=== PATIENT | male | born 1955 | race Caucasian/White ===

== ENCOUNTER 2025-02-14 14:30 | Outpatient (AMB) | payer MEDICARE, SELFPAY ==
[2025-02-14 14:50] VITALS: BP 130/72; PULSE 90; BMI 28.7
--- NOTE | 2025-02-14 14:50 | MHC.OFFVIS ---
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 This was a new finding, as his EKG last year was normal (per PCP note). He is asymptomatic, denying any symptoms of chest pain, racing heart, or pounding sensations. The patient has a family history of atrial fibrillation in his cousins. He has a history of hypertension which is monitored but not medically treated, with a recent self-reported blood pressure of 130/72 mmHg, though a prior reading at his doctor's office was 158/82mmHg. He has never been tested for sleep apnea. [facility] Surgical History (Updated 02/14/25 @ 14:59 by Oanh Ordonez) History of finger surgery Family History (Updated 02/14/25 @ 15:01 by Oanh Ordonez) Mother Chronic a-fib High blood pressure Father Heart attack Social History (Updated 02/14/25 @ 15:01 by Oanh Ordonez) Alcohol intake: current Alcohol intake frequency: a few times a week Alcohol type: wine Patient Tobacco Use Status: Never used Tobacco Review of Systems Const Denies weakness ENT Denies dizziness Card Denies chest pain, Denies chest pain with activity, Denies syncope, Denies rapid heart rate, Denies pedal edema, Denies edema, Denies leg edema, Denies lightheadedness, Denies palpitations, Reports dyspnea, Reports dyspnea on exertion and Denies orthopnea Resp Denies cough, Reports dyspnea and Reports dyspnea on exertion GI Denies hematochezia and Denies change in stool character Musc Denies abnormal gait, Denies muscle cramps, Denies muscle weakness, Denies numbness, Denies radiating pain into limb and Denies tingling Neuro Denies abnormal gait, Denies dizziness, Denies syncope, Denies numbness, Denies tingling and Denies weakness Endo Denies palpitations Physical Exam Vital Signs: Last Vital Signs Pulse 90 02/14/25 14:50 BP 130/72 02/14/25 14:50 BMI result Body Mass Index 28.7 Const General: comfortable and no acute distress Orientation/consciousness: patient oriented x3 HEENT Other: Unremarkable Head: Yes normal to inspection Neck Neck: Yes normal visual inspection Chest Chest palpation & inspection: normal inspection of the chest Resp Auscultation: clear to auscultation bilaterally Cardio Palpation: normal PMI Heart sounds: S1 normal heart sound present, S2 normal heart sound present, no gallops, no murmurs and no rubs GI Palpation (GI): Soft to palpation Back/Spine/Pelvis Other: unremarkable Skin General skin exam: no rashes or lesions noted Neuro General: patient oriented x3 Extrem General: Yes normal to inspection Psych Mental Status: mental status grossly normal Office Procedures EKG Details: EKG with atrial fibrillation at a rate of 90/Min. 29036-[id number], Complete Assessment & Plan Assessment & Plan (1) Atrial fibrillation by electrocardiogram: Code(s): I48.91 - Unspecified atrial fibrillation Category: Medical Plan EKGs from today as well as recent EKG from PCP office showed atrial fibrillation. Unknown duration. Could be a few months as per PCP note, the EKG from previous ER was normal. As he is spontaneously rate controlled, suspect he has got some conduction system disease at baseline. No need for beta-blockers or calcium channel blockers in that regard. We discussed about anticoagulation and considering his age and probable hypertension, he needs to be started on Eliquis. He has done some recent labs for PCP and we will get those for review before starting the medication. After he starts Eliquis, may stop aspirin. He needs further workup with an echocardiogram and Holter monitor. After appropriate anticoagulation, recommend cardioversion. We discussed about these in detail and he understands and agrees. Follow up in a few weeks' time. Discussion Notes: I had a detailed discussion with the patient regarding his new diagnosis of atrial fibrillation. I explained that this is an irregular heart rhythm originating from the top chambers of the heart, which can lead to an ineffective pumping action. I emphasized the most significant risk is stroke, which can occur if blood pools and forms a clot in the heart. I recommended a treatment plan that includes starting a blood thinner, specifically Eliquis, to prevent stroke, and noted that aspirin is not sufficient. We discussed the primary side effects of a blood thinner, such as an increased risk of bruising or bleeding from cuts, but I explained that the risk of a major bleed is very rare for most people. I informed him that we need to review his recent blood work before he starts the medication to ensure it is safe. We also discussed the need for further diagnostic tests, including an echocardiogram and a 3-day Holter monitor, to get more information about his heart. I mentioned that an electrical cardioversion might be an option in the future to reset his heart's rhythm. I advised him to avoid strenuous exercise for now and to follow up in 6-8 weeks after the tests are completed. Patient was informed and verbally consented to the use of an ambient scribe for clinic note documentation during this visit. Orders: Orders CA echo transthoracic complete Today I48.91 - Unspecified atrial fibrillation ECG 3 day holter monitor Today I48.91 - Unspecified atrial fibrillation Coding Level of Care Code New Pt Level 4 (14801) Add On Problem Visit Only Diagnoses Atrial fibrillation by electrocardiogram I48.91 CPT Codes EKG - CPT: 73908-[id number], Complete ([id number])
--- OUTSIDE RECORDS SUMMARY | 2025-02-14 18:10 | XMS_ITS | Data Portability ---
Author Organization [place] - [place] Jose Juan wang[place], [id number] [facility] Address [address] [place] [address] Care Team Providers Care Diver'S Tender Name Role Phone GARCIA WRIGHT Primary Care Provider [phone] Assessment Encounter Date Assessment Date Assessment LastModified by Organization Details LastModified Time 12/29/2022 12/29/2022 Reminders 1. Have you reviewed all current prescriptions and noted which they have discontinued with the patient? Reviewed with patient 2. Have you asked the patient if they are experiencing any new or recurring issues with bladder control? Reviewed with patient 3. Have you asked the patient about their current physical fitness routine and goals? Reviewed with patient Not available 12/29/2022 14:23:21 01/18/2024 01/18/2024 Reminders 1. Have you reviewed all current prescriptions and noted which they have discontinued with the patient? Reviewed with patient 2. Have you asked the patient if they are experiencing any new or recurring issues with bladder control? Reviewed with patient 3. Have you asked the patient about their current physical fitness routine and goals? Reviewed with patient Not available 01/18/2024 14:47:11 01/20/2025 01/20/2025 Reminders 1. Have you reviewed all current prescriptions and noted which they have discontinued with the patient? Reviewed with patient 2. Have you asked the patient if they are experiencing any new or recurring issues with bladder control? Reviewed with patient 3. Have you asked the patient about their current physical fitness routine and goals? Reviewed with patient Not available 01/20/2025 11:34:15 Plan of Treatment Reminders Order Date Submit Date Provider Last Modified By Organization Details Last Modified Time Details Appointments AWV (Medicare ) 2025 11:00A M Garcia Wright MD Not available Not available Not available Lab TSH, ultra-sen sitive, serum 2024 025 GENE [facility], [address] [facility], [place], [address], 01/25/2025 08:09:20 CBC w/ auto diff 2024 025 GENE [facility], [address] [facility], [place], [address], 01/25/2025 08:09:19 CMP, serum or plasma 2024 025 GENE [facility], [address] [facility], [place], [address], 01/25/2025 08:09:18 lipid panel, serum 2024 025 GENE [facility], [address] [facility], [place], [address], 01/25/2025 08:09:19 PSA, serum or plasma 2024 025 GENE [facility], [address] [facility], [place], [address], 01/25/2025 08:09:20 CBC w/ auto diff 2022 023 ATHE[facility] (Centralized Electronic Ordering - All Locations), Patient Can Go To The Location Of Their Choice, 12/29/2022 14:15:40 CMP, serum or plasma 2022 023 [facility] (Centralized Electronic Ordering - All Locations), Patient Can Go To The Location Of Their Choice, 12/29/2022 14:15:40 lipid panel, serum 2022 023 [facility] (Centralized Electronic Ordering - All Locations), Patient Can Go To The Location Of Their Choice, 12/29/2022 14:15:40 PSA, serum or plasma 2022 023 [facility] (Centralized Electronic Ordering - All Locations), Patient Can Go To The Location Of Their Choice, [id number] 12/29/2022 14:15:40 Referral cardiolog ist referral - New onset Afib, request evaluatio n and managemen t 2024 025 [email or web address] Aquiles Nice MD, [address], [place], [address], 01/31/2025 10:07:54 Procedures None recorded. Surgeries None recorded. Imaging electroca rdiogram 2024 [address]25 [email or web address] [address] [place], [address], [place], [address], 01/20/2025 12:29:13 CT, coronary calcium score - HYperchol esterolem ia 2023 024 ATHENAFAX [facility], [address], [place], [address], 01/18/2024 15:01:27 electroca rdiogram [address]23 [email or web address] [address] [place], [address], [address], [place], [address], 12/29/2022 14:25:05 Medication Orders tadalafil 5 mg tablet 2023 024 GENE Not available 01/18/2024 14:27:16 Zithromax Z-Antonio 250 mg tablet 2022 023 Not available 12/29/2022 13:56:58 Patient TargetsNo targets recorded. Patient Instructions Encounter Date Encounter Id Patient Instructions Last Modified By Organization Details Last Modified Time 12/29/2022 [id number] well visit, over 65: care instructions Not available 12/29/2022 14:13:57 preventing falls : care instructions Not available 12/29/2022 14:13:57 advance directiv es: care instructions Not available 12/29/2022 14:13:57 To promote good health please follow these recommendations: Diet, Physical Activity and Healthy Weight: -Eat a diet low in trans and saturated fats and high in fiber, fruits and vegetables -Take 0801-1609 mg of calcium through diet and supplements -Engage in regular physical activity and weight bearing exercise -Aim to achieve and maintain ideal body mass index Tobacco and Alcohol Use: -Don't smoke or use other tobacco products -Avoid excessive alcohol intake Medications: -If you use any medications (prescriptions, crvo-orj-vzopegc, supplements, herbal), always do so as directed by your health care provider -Avoid misuse of any substances in a manner that is not in accordance with appropriate use Safety: -Use seat belts whenever in the car -Use sunscreen regularly to reduce the risk of skin cancer -Test smoke detectors and CO detectors every 6 months -Remove loose rugs and use hand rails on steps and in bath Cognition: -Being intellectually engaged may benefit the brain. Lots of activities can keep your mind active. For example, read books and magazines. Play games. Take or teach a class. Learn a new skill or hobby. Work or volunteer. -People who engage in meaningful activities, like volunteering or hobbies, say they feel happier and healthier. Vaccinations: -Get your yearly influenza vaccine and follow all immunization recommendations outlined in your personal wellness plan. [email or web address] Not available 12/29/2022 13:29:58 01/18/2024 [id number] well visit, over 65: care instructions Not available 01/18/2024 14:27:06 preventing falls : care instructions Not available 01/18/2024 14:27:06 advance directiv es: care instructions Not available 01/18/2024 14:27:06 To promote good health please follow these recommendations: Diet, Physical Activity and Healthy Weight: -Eat a diet low in trans and saturated fats and high in fiber, fruits and vegetables -Take 3726-5421 mg of calcium through diet and supplements -Engage in regular physical activity and weight bearing exercise -Aim to achieve and maintain ideal body mass index Tobacco and Alcohol Use: -Don't smoke or use other tobacco products -Avoid excessive alcohol intake Medications: -If you use any medications (prescriptions, nxjd-hps-voyovfh, supplements, herbal), always do so as directed by your health care provider -Avoid misuse of any substances in a manner that is not in accordance with appropriate use Safety: -Use seat belts whenever in the car -Use sunscreen regularly to reduce the risk of skin cancer -Test smoke detectors and CO detectors every 6 months -Remove loose rugs and use hand rails on steps and in bath Cognition: -Being intellectually engaged may benefit the brain. Lots of activities can keep your mind active. For example, read books and magazines. Play games. Take or teach a class. Learn a new skill or hobby. Work or volunteer. -People who engage in meaningful activities, like volunteering or hobbies, say they feel happier and healthier. Vaccinations: -Get your yearly influenza vaccine and follow all immunization recommendations outlined in your personal wellness plan. Not available 01/18/2024 13:39:04 01/20/2025 [id number] well visit, over 65: care instructions Not available 01/20/2025 12:10:44 preventing falls : care instructions Not available 01/20/2025 12:10:44 advance directiv es: care instructions Not available 01/20/2025 12:10:44 To promote good health please follow these recommendations: Diet, Physical Activity and Healthy Weight: -Eat a diet low in trans and saturated fats and high in fiber, fruits and vegetables -Take 0010-3681 mg of calcium through diet and supplements -Engage in regular physical activity and weight bearing exercise -Aim to achieve and maintain ideal body mass index Tobacco and Alcohol Use: -Don't smoke or use other tobacco products -Avoid excessive alcohol intake Medications: -If you use any medications (prescriptions, tgdd-rge-uiireqc, supplements, herbal), always do so as directed by your health care provider -Avoid misuse of any substances in a manner that is not in accordance with appropriate use Safety: -Use seat belts whenever in the car -Use sunscreen regularly to reduce the risk of skin cancer -Test smoke detectors and CO detectors every 6 months -Remove loose rugs and use hand rails on steps and in bath Cognition: -Being intellectually engaged may benefit the brain. Lots of activities can keep your mind active. For example, read books and magazines. Play games. Take or teach a class. Learn a new skill or hobby. Work or volunteer. -People who engage in meaningful activities, like volunteering or hobbies, say they feel happier and healthier. Vaccinations: -Get your yearly influenza vaccine and follow all immunization recommendations outlined in your personal wellness plan. Not available 01/20/2025 11:04:01 Reason for Referral Volunteer Specialist Referral for At rial fibrillation New onset Afib, request evaluation and management Referring Physician: Garcia Wright, Internal Medicine, Encounter Date: 01/20/2025 Results Created Date Observation Date Name Description Value Unit Range Abnormal Flag Note LastModifiedBy Organization Detail LastModifiedTime 01/25/2001/25/2025 CMP14 +EGFR glucose 101 mg/dL 70-99 above high normal Not Available [facility] ([facility]) [address] [place], [address], 01/25/2025 08:09:18 01/25/20 25 01/25/2025 CMP14 +EGFR BUN 19 mg/dL 8-27 normal Not Available [facility] ([facility]) [address] [place], [address], 01/25/2025 08:09:18 01/25/20 25 01/25/2025 CMP14 +EGFR creatinine 1.18 mg/dL 0.76-1 .27 normal Not Available [facility] ([facility]) [address] [place], [address], 01/25/2025 08:09:18 01/25/20 25 01/25/2025 CMP14 +EGFR eGFR 67 mL/mi n/1.7 3 >59 normal Not Available [facility] ([facility]) [address] [place], [address], 01/25/2025 08:09:18 01/25/20 25 01/25/2025 CMP14 +EGFR BUN/creatini ne ratio 16 10-24 normal Not Available [facility] ([facility]) [address] [place], [address], 01/25/2025 08:09:18 01/25/20 25 01/25/2025 CMP14 +EGFR sodium 138 mmol/ L 134-14 4 normal Not Available [facility] ([facility]) [address] [place], [address], 01/25/2025 08:09:18 01/25/20 25 01/25/2025 CMP14 +EGFR potassium 5.0 mmol/ L 3.5-5. 2 normal Not Available [facility] ([facility]) [address] [place], [address], 01/25/2025 08:09:18 01/25/20 25 01/25/2025 CMP14 +EGFR chloride 100 mmol/ L 96-106 normal Not Available [facility] ([facility]) [address] [place], [address], 01/25/2025 08:09:18 01/25/20 25 01/25/2025 CMP14 +EGFR carbon dioxide, total 27 mmol/ L 20-29 normal Not Available [facility] ([facility]) [address] [place], [address], 01/25/2025 08:09:18 01/25/20 25 01/25/2025 CMP14 +EGFR calcium 10.0 mg/dL 8.6-10 .2 normal Not Available [facility] ([facility]) [address] [place], [address], 01/25/2025 08:09:18 01/25/20 25 01/25/2025 CMP14 +EGFR protein, total 7.2 g/dL 6.0-8. 5 normal Not Available [facility] ([facility]) [address] [place], [address], 01/25/2025 08:09:18 01/25/20 25 01/25/2025 CMP14 +EGFR albumin 4.6 g/dL 3.9-4. 9 normal Not Available [facility] ([facility]) [address] [place], [address], 01/25/2025 08:09:18 01/25/20 25 01/25/2025 CMP14 +EGFR globulin, total 2.6 g/dL 1.5-4. 5 Not Available [facility] ([facility]) [address] [place], [address], 01/25/2025 08:09:18 01/25/20 25 01/25/2025 CMP14 +EGFR bilirubin, total 0.7 mg/dL 0.0-1. 2 normal Not Available [facility] ([facility]) [address] [place], [address], 01/25/2025 08:09:18 01/25/20 25 01/25/2025 CMP14 +EGFR alkaline phosphatase 57 IU/L 47-123 normal Not Available [facility] ([facility]) [address] [place], [address], 01/25/2025 08:09:18 01/25/20 25 01/25/2025 CMP14 +EGFR AST (SGOT) 27 IU/L 0-40 normal Not Available [facility] ([facility]) [address] [place], [address], 01/25/2025 08:09:18 01/25/20 25 01/25/2025 CMP14 +EGFR ALT (SGPT) 27 IU/L 0-44 normal Not Available [facility] ([facility]) [address] [place], [address], 01/25/2025 08:09:18 01/25/20 25 01/25/2025 CBC WITH DIFFE RENTI AL/PL ATELE T WBC 7.1 x10e3 /uL 3.4-10 .8 normal Not Available [facility] ([facility]) [address] [place], [address], 01/25/2025 08:09:19 01/25/20 25 01/25/2025 CBC WITH DIFFE RENTI AL/PL ATELE T RBC 5.44 x10e6 /uL 4.14-5 .80 normal Not Available [facility] ([facility]) [address] [place], [address], 01/25/2025 08:09:19 01/25/2001/25/2025 CBC WITH DIFFE RENTI AL/PL ATELE T hemoglobin 16.3 g/dL 13.0-1 7.7 normal Not Available [facility] ([facility]) [address] [place], [address], 01/25/2025 08:09:19 01/25/2001/25/2025 CBC WITH DIFFE RENTI AL/PL ATELE T hematocrit 48.7 % 37.5-5 1.0 normal Not Available [facility] ([facility]) [address] [place], [address], 01/25/2025 08:09:19 01/25/2001/25/2025 CBC WITH DIFFE RENTI AL/PL ATELE T MCV 90 fL 79-97 normal Not Available [facility] ([facility]) [address] [place], [address], 01/25/2025 08:09:19 01/25/2001/25/2025 CBC WITH DIFFE RENTI AL/PL ATELE T MCH 30.0 pg 26.6-3 3.0 normal Not Available [facility] ([facility]) [address] [place], [address], 01/25/2025 08:09:19 01/25/20 25 01/25/2025 CBC WITH DIFFE RENTI AL/PL ATELE T MCHC 33.5 g/dL 31.5-3 5.7 normal Not Available [facility] ([facility]) [address] [place], [address], 01/25/2025 08:09:19 01/25/20 25 01/25/2025 CBC WITH DIFFE RENTI AL/PL ATELE T RDW 14.3 % 11.6-1 5.4 Not Available [facility] ([facility]) [address] [facility], [place], [address], 01/25/2025 08:09:19 01/25/20 25 01/25/2025 CBC WITH DIFFE RENTI AL/PL ATELE T platelets 254 x10e3 /uL 150-45 0 normal Not Available [facility] ([facility]) [address] [facility], [place], [address], 01/25/2025 08:09:19 01/25/20 25 01/25/2025 CBC WITH DIFFE RENTI AL/PL ATELE T neutrophils 57 % not estab. normal Not Available [facility] ([facility]) [address] [facility], [place], [address], 01/25/2025 08:09:19 01/25/20 25 01/25/2025 CBC WITH DIFFE RENTI AL/PL ATELE T lymphs 30 % not estab. normal Not Available [facility] ([facility]) [address] [facility], [place], [address], 01/25/2025 08:09:19 01/25/20 25 01/25/2025 CBC WITH DIFFE RENTI AL/PL ATELE T monocytes 9 % not estab. normal Not Available [facility] ([facility]) [address] [facility], [place], [address], 01/25/2025 08:09:19 01/25/20 25 01/25/2025 CBC WITH DIFFE RENTI AL/PL ATELE T eos 3 % not estab. normal Not Available [facility] ([facility]) [address] [facility], [place], [address], 01/25/2025 08:09:19 01/25/2001/25/2025 CBC WITH DIFFE RENTI AL/PL ATELE T basos 1 % not estab. normal Not Available [facility] ([facility]) [address] [place], [address], 01/25/2025 08:09:19 01/25/20 25 01/25/2025 CBC WITH DIFFE RENTI AL/PL ATELE T immature cells ARCHITECTURE INTERN Not Available [facility] ([facility]) [address] [place], [address], 01/25/2025 08:09:19 01/25/2001/25/2025 CBC WITH DIFFE RENTI AL/PL ATELE T neutrophils (absolute) 4.0 x10e3 /uL 1.4-7. 0 normal Not Available [facility] ([facility]) [address] [place], [address], 01/25/2025 08:09:19 01/25/2001/25/2025 CBC WITH DIFFE RENTI AL/PL ATELE T lymphs (absolute) 2.1 x10e3 /uL 0.7-3. 1 normal Not Available [facility] ([facility]) [address] [place], [address], 01/25/2025 08:09:19 01/25/2001/25/2025 CBC WITH DIFFE RENTI AL/PL ATELE T monocytes(ab solute) 0.6 x10e3 /uL 0.1-0. 9 normal Not Available [facility] ([facility]) [address] [place], [address], 01/25/2025 08:09:19 01/25/20 25 01/25/2025 CBC WITH DIFFE RENTI AL/PL ATELE T eos (absolute) 0.2 x10e3 /uL 0.0-0. 4 normal Not Available [facility] ([facility]) [address] [place], [address], 01/25/2025 08:09:19 01/25/20 25 01/25/2025 CBC WITH DIFFE RENTI AL/PL ATELE T baso (absolute) 0.1 x10e3 /uL 0.0-0. 2 normal Not Available [facility] ([facility]) [address] [facility], [place], [address], 01/25/2025 08:09:19 01/25/20 25 01/25/2025 CBC WITH DIFFE RENTI AL/PL ATELE T immature granulocytes 0 % not estab. Not Available [facility] ([facility]) [address] [facility], [place], [address], 01/25/2025 08:09:19 01/25/20 25 01/25/2025 CBC WITH DIFFE RENTI AL/PL ATELE T immature grans (abs) 0.0 x10e3 /uL 0.0-0. 1 Not Available [facility] ([facility]) [address] [facility], [place], [address], 01/25/2025 08:09:19 01/25/20 25 01/25/2025 CBC WITH DIFFE RENTI AL/PL ATELE T NRBC ARCHITECTURE INTERN Not Available [facility] ([facility]) [address] [facility], [place], [address], 01/25/2025 08:09:19 01/25/20 25 01/25/2025 CBC WITH DIFFE RENTI AL/PL ATELE T hematology comments: ARCHITECTURE INTERN Not Available [facility] ([facility]) [address] [facility], [place], [address], 01/25/2025 08:09:19 01/25/20 25 01/25/2025 LIPID PANEL cholesterol, total 197 mg/dL 100-19 9 normal Not Available [facility] ([facility]) [address] [facility], [place], [address], 01/25/2025 08:09:19 01/25/20 25 01/25/2025 LIPID PANEL triglyceride s 82 mg/dL 0-149 normal Not Available [facility] ([facility]) [address] [place], [address], 01/25/2025 08:09:19 01/25/20 25 01/25/2025 LIPID PANEL HDL cholesterol 48 mg/dL >39 normal Not Available [facility] ([facility]) [address] [place], [address], 01/25/2025 08:09:19 01/25/20 25 01/25/2025 LIPID PANEL VLDL cholesterol lexa 15 mg/dL 5-40 Not Available [facility] ([facility]) [address] [place], [address], 01/25/2025 08:09:19 01/25/20 25 01/25/2025 LIPID PANEL LDL chol calc ([facility]) 134 mg/dL 0-99 above high normal Not Available [facility] ([facility]) [address] [place], [address], 01/25/2025 08:09:19 01/25/2001/25/2025 LIPID PANEL LDL calc comment: ARCHITECTURE INTERN Not Available [facility] ([facility]) [address] [place], [address], 01/25/2025 08:09:19 01/25/2001/24/2025 PSA TOTAL (REFL EX TO FREE) reflex criteria COMMEN T The perce nt free PSA is perfo rmed on a refle x basis only when the total PSA is betwe en 4.0 and 10.0 ng/mL . Not Available [facility] ([facility]) [address] [place], [address], 01/25/2025 08:09:20 01/25/20 25 01/25/2025 PSA TOTAL (REFL EX TO FREE) prostate specific Ag 3.9 NG/mL 0.0-4. 0 normal Bharat ECLIA metho dolog y. Accor ding to the Ameri can [employer]rolo g[employer] iatio n, Serum PSA shoul d decre ase and remai n at undet ectab le level s after radic al prost atect taran. The AUA defin es bioch emica l recur rence as an initi al PSA value 0.2 ng/mL or great er follo wed by a subse quent confi rmato ry PSA value 0.2 ng/mL or great er. Value s obtai katia with diffe rent assay metho ds or kits canno t be used inter chávez eably . Resul ts canno t be inter prete d as absol [place] evide nce of the prese nce or absen ce of mario leal se. Not Available [facility] ([facility]) [address] [facility], [place], [address], 01/25/2025 08:09:20 01/25/2001/25/2025 TSH TSH 3.460 uIU/m L 0.450- 4.500 normal Not Available [facility] ([facility]) [address] [facility], [place], [address], 01/25/2025 08:09:20 12/30/19 [facility] No observ ation record ed. GENE [email or web address] [address] [place] [address] [facility], [place], [address], 12/29/2022 14:13:52 12/31/19 23 12/29/2022 [facility] No observ ation record ed. GENE [email or web address] [address], [place], [address], 01/20/2025 11:56:29 01/21/20 [facility] No observ ation record ed. GENE [email or web address] [address], [place], [address], 01/20/2025 12:19:09 01/24/2001/20/2025 elect laci boland am No observ ation record ed. THOMPSON [email or web address] [address] [place], [address], 01/26/2025 15:12:07 Result Notes None recorded. 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 75676024583 07 Active 2022 Vasculoge yamilet erectile dysfuncti on Not Available [facility] 3 12:02:51 Hyperchol esterolem ia 63777228 Active 2022 Hyperchol esterolem ia Not Available [facility] 3 12:02:52 Insomnia 766804388 Active 2022 Garcia Wright MD [address] [place] [address], [address] [place] [address] , [facility] 3 14:58:49 Seasonal allergic rhinitis 084106626 Active 2024 Garcia Wright MD [address] [place] [address], [address] [place] [address] , [facility] 5 11:23:10 Atrial fibrillat ion 55558156 Active 2024 Garcia Wright MD [address] [place] [address], [address] [place] [address] , [facility] 5 12:04:32 Essential hypertens ion 15803417 Active 2024 Garcia Wright MD [address] [place] [address], [address] [place] [address] , [facility] 5 12:28:05 Problem Notes None recorded. Procedures Surgical History Date Name Laterality Status Provider Name and Address Organization Details Recorded Time 01/21/20 AWV - male prevention plan completed Garcia Wright MD [address] [place] [address], [address] [place] [address], [place] [facility] 01/20/2025 12:18:30 01/21/20 25 AWV - safety evaluation completed Monique Wesley [place] - [place] [facility] 01/20/2025 11:04:01 01/18/20 24 AWV - male prevention plan completed Garcia Wright MD [address] [place] [address], [address], [place], [address], [place] [facility] 01/18/2024 14:46:49 01/18/20 24 Advance Care Planning Consultation completed Garcia Wright MD [address] [place] [address], [address], [place], [address], [place] [facility] [place] 01/18/2024 14:47:05 01/18/20 24 AWV - safety evaluation completed Danielle Gabriel [place] - [facility] 01/18/2024 13:39:04 12/30/19 23 Advance Care Planning Consultation completed Kyara Aviles [place] - [facility] 12/29/2022 13:29:59 12/30/19 23 AWV - safety evaluation completed [facility]iles [facility] [place] 12/29/2022 13:29:59 12/30/19 23 AWV - male prevention plan completed Garcia Wright MD [address] [place] [address], [address] Floor, [place], [address], [place] - [facility] 12/29/2022 14:23:09 03/04/19 23 colonoscopy completed Garcia Wright MD [address] [place] [address], [address] [place] [address], [place], [address], [place] - [place] [facility] 12/29/2022 14:00:29 Imaging Results None recorded. Procedure Notes None recorded. Medical Equipment None Reported. Allergies No known drug allergies Medications Name Sig Start Date Stop Date Status Note LastModified by Organization Details LastModified Time sildenafil 50 mg tablet TAKE 1 TABLET BY MOUTH NEEDED FOR ERECTILE DYSFUNCTI ON 01/20 completed Not Available Not Available Not Available azithromyci n 250 mg tablet TAKE 2 TABLETS BY MOUTH ON DAY 1 THEN TAKE 1 TABLET DAILY ON DAYS 2-5. 12/29 completed Not Available Not Available Not Available benzonatate 200 mg capsule TAKE 1 CAPSULE BY MOUTH 2 TO 3 TIMES PER DAY FOR 4 DAYS NEEDED FOR COUGH 05/29 completed Not Available Not Available Not Available prednisone 20 mg tablet TAKE 2 TABLETS BY MOUTH DAILY FOR 5 DAYS active Not Available Not Available No t Available benzonatate 100 mg capsule TAKE 1 CAPSULE BY MOUTH TWICE A DAY FOR COUGH FOR 5 DAYS active Not Available Not Available No t Available levofloxaci n 750 mg tablet TAKE 1 TABLET BY MOUTH DAILY FOR 7 DAYS 05/29 completed Not Available Not Available Not Available albuterol sulfate HFA 90 mcg/actuati on aerosol inhaler INHALE 2 PUFFS 4 TIMES A DAY FOR SHORTNESS OF BREATH OR WHEEZING FOR 7 DAYS active Not Available Not Available No t Available fluticasone propionate 50 mcg/actuati on nasal spray,suspe nsion SHAKE LIQUID AND USE 2 SPRAYS IN EACH NOSTRIL DAILY FOR 10 DAYS active Not Available Not Available No t Available doxycycline hyclate 100 mg tablet TAKE 1 TABLET BY MOUTH TWICE A DAY FOR 10 DAYS 01/17 completed Not Available Not Available Not Available amoxicillin 875 mg-potassiu m clavulanate 125 mg tablet TAKE 1 TABLET BY MOUTH TWICE DAILY FOR 10 DAYS 01/20 completed Not Available Not Available Not Available tadalafil 5 mg tablet TAKE 1 TABLET BY MOUTH EVERY DAY NEEDED active Not Available Not Available No t Available Vitals Date Recorded Body height Body mass index (BMI) Body weight Oxygen saturation Heart rate Body temperature Systolic And Diastolic Provider Name and Address Organization Details Last Updated DateTime 3 182.9 cm 29.3 kg/m2 66282.0 5 g 95 % 87 /min 97.2 [degF] 130/60 mm[Hg] Kyara lozoya CT - [facility] 3 13:46:41 Date Recorded Body weight Oxygen saturation Heart rate Systolic And Diastolic Provider Name and Address Organization Details Last Updated DateTime 01/18/2024 99922.54 g 98 % 87 /min 140/88 mm[Hg] Danielle Gabriel CT - [facility] 01/18/2024 13:44:52 Date Recorded Body height Body mass index (BMI) Body weight Heart rate Oxygen saturation Systolic And Diastolic Provider Name and Address Organization Details Last Updated DateTime 5 182.88 cm 30 kg/m2 641571. 91 g 63 /min 96 % 158/82 mm[Hg] Monique Olson CT - [facility] 11:08:25 Social History Question Answer Notes LastModified by Organizat ion Details LastModified Time Tobacco Smoking Status Never Smoker Not Available [facility] 09/19/2022 06:13:04 Do You Have An Advance Directive? No Information not available 12/29/2022 Do You Wear A Helmet When Biking? Yes Information not available 12/29/2022 Are You Blind Or Do You Have Difficulty Seeing? No Information not available 12/29/2022 What Is Your Level Of Caffeine Consumption? Moderate Information not available 12/29/2022 Are You A Caregiver? No Information not available 01/18/2024 Are You Deaf Or Do You Have Serious Difficulty Hearing? No Information not available 12/29/2022 What Type Of Diet Are You Following? REGULAR Information not available 12/29/2022 Do You Use Insect Repellent Routinely? No Information not available 01/18/2024 Where Do You Live? [facility] Information not available 01/18/2024 How Often During The Past 4 Weeks Have You Been Bothered By Teeth Or Denture Problems? Never Information not available 12/29/2022 During The Past 4 Weeks, How Much Have You Been Bothered By Emotional Problems Such As Feeling Anxious, Depressed, Irritable, Sad, Or Downhearted And Blue? Not At All Information not available 12/29/2022 Are You Afraid Of Falling? No Information not available 12/29/2022 Do You Have A Medical Power Of [place]? No Information not available 12/29/2022 What Was The Date Of Your Most Recent Tobacco Screening? 01/20/2025 Information not available 01/20/2025 How Many Children Do You Have? 2 Information not available 12/29/2022 Do You Have An Out Of Hospital DNR? No Information not available 12/29/2022 What Is Your Relationship Status? Information not available 12/29/2022 Do You Use Your Seat Belt Or Car Seat Routinely? Yes Information not available 12/29/2022 Do You Have Smoke And Carbon Monoxide Detectors In Your Home? Yes Information not available 01/18/2024 Are You Passively Exposed To Smoke? No Information not available 01/18/2024 Do You Use Sunscreen Routinely? No Information not available 01/18/2024 Has Tobacco Cessation Counseling Been Provided? Yes Information not available 01/18/2024 On What Date Was Tobacco Cessation Counseling Provided? 01/20/2025 [email or web address] Information not available 01/20/2025 Do You Have Difficulty Walking Or Climbing Stairs? No Information not available 12/29/2022 Sex: Male Functional Status Question Answer Note LastModified by Organizat ion Details LastModified Time Do you use any illicit or recreational drugs? No Information not available 01/18/2024 Do you or have you ever used any other forms of tobacco or nicotine? No Information not available 01/18/2024 What is your level of alcohol consumption? Occasional Information not available 12/29/2022 Do you have transportation difficulties? No Information not available 12/29/2022 Are you able to walk independently without assistance or assistive devices? YESWOREST Information not available 12/29/2022 Do you have difficulty doing errands alone? No Information not available 12/29/2022 Are you able to care for yourself independently? Yes Information not available 12/29/2022 Do you have difficulty dressing, bathing, grooming, or toileting? No Information not available 12/29/2022 What is your exercise level? Occasional Information not available 01/18/2024 Mental Status Question Answer Note LastModified by Organizat ion Details LastModified Time Do you feel stressed (tense, restless, nervous, or anxious, or unable to sleep at night)? [id number] Information not available 12/29/2022 Do you have difficulty concentrating, remembering or making decisions? No Information no t available 12/29/2022 Family History Relationship Description Onset Age of this Age Resolved Age Notes LastModified by Organization Details LastModified Time Father Heart disease Not available 2024 11:31:51 Medical History Condition Response HIV or AIDS N Gout N Kidney Stones N Depression N Pacemaker N Hyperthyroidism (over active) N Anemia N Allergies (environmental/food) Y Reflux/GERD (heartburn) N Anesthesia Complications N Anxiety Disorder N Hypercholesterolemia (high cholesterol) N Diabetes Mellitus N Chronic Obstructive Pulmonary Disease (C OPD) N Genetic / Hereditary Disorder N Arthritis Y Autism Spectrum Disorder N Seizures / Epilepsy N Heart Murmur N Hypertension (high blood pressure) N Hypothyroidism (under active) N Congestive Heart Failure (CHF) N Cancer N Asthma N Sleep Apnea N Colon Polyp Y Cerebrovascular Accident (Stroke) N Hepatic / Liver Disease N Myocardial Infarction (heart attack) N Headaches / Migraines N Immunizations Vaccine Type Date Status Note Provider Nam e and Address Organization Details Recorded Time Influenza, adjuvanted, quadrivalent, PF 3 completed Danielle draper, CT - [facility] [place] 12/29/2022 16:22:36 zoster live 6 completed Not Available [facility] 09/17/2022 22:06:09 DT (pediatric) 0 completed Not Available [facility] 09/17/2022 22:06:09 Td(adult) unspecified formulation 3 completed Not Available [facility] 09/17/2022 22:06:10 COVID-19, mRNA, LNP-S, PF, 30 mcg/0.3 mL dose 1 completed Not Available [facility] 09/17/2022 22:06:10 zoster live 7 completed Not Available [facility] 09/17/2022 22:06:10 Tdap 2 completed Not Available [facility] 09/17/2022 22:06:10 pneumococcal polysaccharide PPV23 3 completed Garcia Wright MD [address] [place] [address], [address], [place], [address], [place] - CT [facility] [place] 12/29/2022 13:58:54 Past Encounters Encounter ID Performer Location Encounter Start Date Encounter Closed Date Diagnosis/Indication Diagnosis SNOMED-CT Code Diagnosis ICD10 Code Diagnosis IMO Codes Diagnosis Note [id number] Garcia Wright MD [facility]_ IM[facility]16 [address] [place] [address] 10/10/2022 14:30:14 10/10/2022 16:15:13 Acute bronchitis 81995524 J20.9 We will start patient on Z-Antonio x1 and discussed options and will try Claritin-D in the morning to help with congestion . Will call us if he is not improving. Insomnia 301040120 F51.0 9 Multiple options discussed we will try to increase melatonin to 10 mg max and let us know if he is not improving with that. We opted to hold off on prescripti on medication s. He will follow-up in a few months for his annual physical examinatio n. [id number] Garcia Wright MD [facility] [place] [address] 12/17/2022 11:35:01 12/17/2022 12:13:05 Acute bronchitis 65674534 J20.9 Discussed options and will start him on antibiotic s, usually does well with Z-Antonio so we will call that in for him. He will again continue his Claritin-D for congestion control and increase his bedrest and fluids. He will call us back if he is not improving. [id number] Garcia Wright MD [facility]16 [address] [address] 12/29/2022 13:20:37 12/29/2022 14:18:53 Adult health examination 701313678 Z00.00 Wilberto has been doing well and we encourage him to continue his regular exercises to maintain his weight. We will check a CBC CMP cholestero l and PSA level. We gave him a flu vaccine today on his left deltoid with no complicati ons and he is up-to-date with his COVID, Tdap, Shingrix, and Pneumovax. We spoke to him about the RSV virus which we recommend he also obtain this fall season. He is up-to-date with his colonoscop y Vaccination given 625730 003 Z23 Left deltoid with no complicati on Hypercholesterolemia 136 22353 E78.00 We will check his cholestero l panel and calculate his 10-year CV risk. [id number] MD CAROLINE Marie_SHOBHA_ IM_16 [address] [place] [address] 01/18/2024 13:29:22 01/18/2024 14:33:55 Adult health examination 900372217 Z00.00 Wilberto has been doing well and we encourage him to continue his regular exercises to maintain his weight. He is up-to-date with all his vaccinatio n except flu and COVID boosters vaccinatio n. He will obtain these in his local pharmacy because we ran out in the office. He recently had a CBC CMP and cholestero l check as well as PSA as discussed above. He is up-to-date with his colonoscop y. Hypercholesterolemia 136 82895 E78.00 10-year CV risk is at 20% and he finally agreed to have a coronary calcium CT which we will schedule. Erectile d ysfunction due to disorder of blood vessel 5947498856 107 N52.9 Will switch him to tadalafil 5 mg to be taken only as needed as well and will call us if it still not helping. Insomnia 055864065 F51.0 9 Seems to be doing well on melatonin up to 5 mg at bedtime we will continue present dosing since he has no side effects from it. [id number] MD CAROLINE Marie_SHOBHA_ IM_[address] [place] [address] 03/29/2024 08:17:00 03/29/2024 09:41:25 Chronic cough 91487557 R05.3 36751 Possible cough due to postnasal drip or acid indigestio n reflux. We will have the patient start Zyrtec 10 mg at bedtime for the next 2 weeks and if it is not improving we will need to see him in person to rule out cardiac or GI issues. He will call us if symptoms worsen in spite of present proposed management . [id number] MD CAROLINE Marie_CTCSAMINA_ _[address] [facility] [place] [address] 01/20/2025 10:50:25 01/20/2025 12:18:01 Adult health examination 533848905 Z00.00 [id number] Wilberto has been doing well and we encourage him to restart his regular exercises to maintain his weight. He is up-to-date with Tdap, Pneumovax and Shingrix. We will recheck a CBC CMP and cholestero l check as well as PSA as discussed above. He is up-to-date with his colonoscop y. Hypercholesterolemia 136 52307 E78.00 10-year CV risk is at 20% and he agreed to have a coronary calcium CT but after he sees the cardiologi st, which we will schedule due to his new onset A-fib. Atrial fibrillation 4943 6004 I48.91 [id number] EKG done today shows atrial fibrillati on of unknown age. EKG last year was normal. Will start patient on baby aspirin a day and scheduled for cardiology consult. CHADS2 score today due to high blood pressure is 1. Patient declined beta-block ers today. Essential hypertension 58947800 I10 65753 Patient declined any blood pressure medication today but will check his blood pressure at home and report back in 1 month. We spoke about salt control as well as starting low impact cardio exercises. We will calibrate his machine next month when he returns. Health Concerns Section Related Observation LastModified by Organization Detai ls LastModified Time None Recorded Concern Status LastModified by Organization Details LastModified Time None Recorded Advance Directives Directive N: Payers Insurance Date Sequence Insurance Name Policy Number Policy Parsons Covered Member ID Parsons Member ID Guarantor Name 03/29/2024 1 [facility] (MEDICARE REPLACEMENT/AD VANTAGE - PPO) [id number] Raad Pierre [id number] Raad Pierre 01/30/2025 1 [facility]: MEDICARE PPO BLUE (MEDICARE REPLACEMENT PPO) [id number] Raad Pierre [id number] Raad Pierre Notes Date Note Type Note Provider Name and Address Organization Details Recorded Time 3 text/html Virtual VisitReported by PatientIdentity:For patient identity verified by, patient reportsknown established patient. For i shared my identity credentials with the patient, patient reportsyes.Location:For patient is currently located in the state of, patient reportsct. For patient location, patient reportshome. For provider location, patient reportsi was located at my office.Virtual Visit Education:For i educated the patient on the nature of a virtual visit, patient reportsyes. For emergency plan agreed upon, patient reportsyes.Virtual Visit Technology:For the patient was seen through synchronous audio and video technology, patient reportsyes. For any documented vital signs were obtained during the telehealth visit via, patient reports__. Wilberto is seen today via TeleMed video for an acute issue. She has been having congestion for over a week initially with some fatigue and muscle aches as well. Tested for COVID which has been negative and now having progressively productive sputum for 2 days. He denies having any high fever or shortness of breath, no chest pains no dizziness, no abdominal pains or diarrhea. He has been taking Claritin-D due to his year-long issues with allergic rhinitis but he has been seeing his grandkids on a weekly basis and sometimes they do have viral infections. Garcia Wright MD [address] [place] [address], [address], [place], [address], CT - CT [facility] 12/17/2022 12:06:07 3 text/html Medicare Annual Wellness Visit Health Risk AssessmentReported by PatientSocial/Behavioral HistoryFor diet and nutrition, patient reportshealthy dietandno dental changes. For medication review, patient reportshas medications at home and can afford medications. For fracture risk, patient reportsno recent explained fracture. For physical activity, patient reportsexercises on a regular basisandgood physical condition. For sexual activity, patient reportsdifficulty with sexual activity or cannot perform. For current level of pain, patient reportsno pain: 0/10. For behavioral history, patient reportsdenies use of tobacco or any other nicotine delivery product (i.e., e-cigarette, vaping or chewing tobacco) in past 12 months,denies alcohol use or practices limited (social only) alcohol use,denies misuse of prescription medications, anddenies drug use, including marijuana, cocaine or crack, heroin, methamphetamine (crystal meth), hallucinogens, ecstasy/mdma. Wilberto comes in today for a annual wellness visit. He has been doing well except for the occasional congestion and bronchitis because he is now seeing his grandkids every weekend and probably catching viral infections frequently. He has no previous history of asthma nor is he ever been a smoker. He has had to be treated with antibiotics several times and we are trying to avoid or prevent him from having too many recurrences. He has known history of hyperlipidemia but has never been on medication and cannot recall the last time he had a cholesterol check. He also has history of ED which is usually improved with the use of sildenafil on a as needed basis. He has kept his weight checked and stable and he walks for exercise regularly. He lives with his and is retired. Garcia Wright MD [address] [place] [address], [address], [place], [address], [place] - CT [facility] 12/29/2022 14:24:50 4 text/html Medicare Annual Wellness Visit Health Risk AssessmentReported by PatientSocial/Behavioral HistoryFor diet and nutrition, patient reportshealthy dietandno dental changes. For fracture risk, patient reportsno recent explained fracture. For physical activity, patient reportsexercises on a regular basisandgood physical condition. For sexual activity, patient reportsdifficulty with sexual activity or cannot perform. For current level of pain, patient reportsno pain: 0/10. For behavioral history, patient reportsdenies use of tobacco or any other nicotine delivery product (i.e., e-cigarette, vaping or chewing tobacco) in past 12 months,denies alcohol use or practices limited (social only) alcohol use,denies misuse of prescription medications, anddenies drug use, including marijuana, cocaine or crack, heroin, methamphetamine (crystal meth), hallucinogens, ecstasy/mdma. For medication review, (presently not on any regular medications.).Mental Status:For depression risk, patient reportsassessed by phq 2/9, see results. Wilberto is seen today for his annual wellness visit. He has been doing well with no acute issues except for some joint stiffness and achiness over his hands usually early in the morning. His weight has been stable and he has been walking for exercise regularly now that he is retired and only taking care of his grandchildren. We have been monitoring his cholesterol and he has declined any medication or testing, latest LDL still about 150 mg percent with a 10-year CV risk of 20%.ED remains an issue and has tried sildenafil with no success in the past. Sleeping was also an issue but doing much better on as needed use of melatonin. Garcia Wright MD [address] [place] [address], [address], [place], [address], CT - CT [facility] 01/18/2024 14:49:23 5 text/html Virtual VisitReported by PatientIdentity:For patient identity verified by, patient reportsknown established patient. For i shared my identity credentials with the patient, patient reportsyes.Location:For patient is currently located in the state of, patient [place]ct([place] For patient location, patient reportshome. For provider location, patient reportsi was located at my office.Virtual Visit Education:For i educated the patient on the nature of a virtual visit, patient reportsyes. For emergency plan agreed upon, patient reportsyes.Virtual Visit Technology:For the patient was seen through synchronous audio and video technology, patient reportsyes. For any documented vital signs were obtained during the telehealth visit via, patient reports__. Raad is seen today via TeleMed video for an acute visit. He has been having a chronic dry cough over the past 3 months mostly noted at bedtime when he lies down recumbent. He would start having coughing episodes and occasionally having some mild shortness of breath. He denies having any fever or chills or wheezing and no productive sputum. He does not have the symptoms when he wakes up in the morning or during the daytime. He acknowledges history of seasonal allergies but usually during spring time. He denies having any recent travel or changes in his daily lifestyle or any additions to the house or his home recently. He denies having any indigestion symptoms or history of asthma nor smoking in the past. He has not tried any medication but has been to the urgent care last month wherein they took a chest x-ray which was reportedly normal and gave him benzonatate for cough suppression. There has been no recent change in his medications, and was given course of Augmentin 6 weeks ago after his chest x-ray. Symptoms did not significantly improve and continued on after the antibiotics. Garcia Wright MD [address] [facility], [address], [place], [address], [place] - [place] [facility] 03/29/2024 08:57:36 5 text/html Medicare Annual Wellness Visit Health Risk AssessmentReported by PatientSocial/Behavioral HistoryFor physical activity, patient reportsdoes not exercise on a regular basisbut reportsgood physical condition. For diet and nutrition, patient reportshealthy dietandno dental changes. For medication review, patient reportshas medications at home and can afford medicationsandtaking medications as prescribed and directed. For fracture risk, patient reportsno recent explained fracture. For sexual activity, patient reportsdifficulty with sexual activity or cannot perform. For current level of pain, patient reportsno pain: 0/10. For behavioral history, patient reportsdenies use of tobacco or any other nicotine delivery product (i.e., e-cigarette, vaping or chewing tobacco) in past 12 months,denies alcohol use or practices limited (social only) alcohol use,denies misuse of prescription medications, anddenies drug use, including marijuana, cocaine or crack, heroin, methamphetamine (crystal meth), hallucinogens, ecstasy/mdma. For fatigue, patient reportsdenies fatigue.Mental Status:For depression risk, patient reportsassessed by phq 2/9, see results. For orientation, patient reportsno disorientation to time,no disorientation to date, andno disorientation to place. For concentration and memory, patient reportsno decreased concentrating ability,no memory lapses or loss, anddoes not forget words. For speech/motor difficulties, patient reportsno speech difficulties,no difficulty expressing formulated concepts,no difficulty with fine manipulative tasks,no difficulty writing/copying,no slowed reaction time, anddoes not knock things over when trying to pick them up. For life satisfaction, patient reportscurrently satisfied with life. For stress, patient reportsnot stressed. For anger/agitation, patient reportsno anger/agitation. For loneliness/ social isolation, patient reportsnot feeling loneliness. For suicidality, patient reportsdenied active suicidal ideation.Functional AbilityFor hearing, patient reportsno loss of hearing. For vision, patient reportsno vision problems. Raad is seen today for his annual physical examination. He is doing and feeling well but we noticed a 4 pound weight gain from last year which he attributes to a little laxity of his diet controlled. He has no acute symptoms or complaints at the moment. We continue to monitor his cholesterol levels which were elevated last year and a 10-year CV risk of 20%. He was scheduled for a coronary calcium CT which was never done. He still does not exercise regularly as well. ED still on tadalafil 5 mg as needed and he wants to try a different dose but tolerating the medication so far. Still with seasonal allergies mostly to fall season and getting congested once again but no productive cough late last year and no shortness of breath. Garcia Wright MD [address] [place] [address], [address] Floor, [place], [address], [place] - [facility] 01/20/2025 12:29:17
--- OUTSIDE RECORDS SUMMARY | 2025-02-14 18:10 | XMS_ITS | Continuity of Care Document ---
Author Organization CT - CT Michaelshazia Trevinoen [email or web address], [email or web address] [place] Address [address] [place] [address] Care Team Providers Care Potato Bucker Name Role Phone GARCIA WRIGHT Primary Care Provider Assessment Encounter Date Assessment Date Assessment LastModified by Organization Details LastModified Time 01/20/2025 01/20/2025 Reminders 1. Have you reviewed [...] TSH, ultra-sen sitive, serum 2024 025 GENE Labsohail, [address] [facility], [place], [address], 01/25/2025 08:09:20 CBC w/ auto diff [address], [place], [address], 01/25/2025 08:09:19 CMP, serum or plasma [address], [place], [address], 01/25/2025 08:09:18 lipid panel, serum 2024 025 GENE Damico, [address], [place], [address], 01/25/2025 08:09:19 PSA, serum or plasma 2024 025 GENE Damioc, [address], [place], [address], 01/25/2025 08:09:20 Referral cardiolog ist referral - New onset Afib, request evaluatio n and managemen t 2024 025 Aquiles Nice MD, [address], [place], [address], 01/31/2025 10:07:54 Procedures None recorded. Surgeries None recorded. Imaging electroca rdiogram [email or web address] [address], [address] [place], [address], 01/20/2025 12:29:13 Medication Orders None recorded. Patient TargetsNo targets recorded. Patient Instructions Encounter Date Encounter Id Patient Instructions Last Modified By Organization Details Last Modified Time 01/20/2025 [id number] well visit, over 65: care instructions Not available 01/20/2025 12:10:44 preventing falls : care instructions Not available 01/20/2025 12:10:44 advance directiv es: care instructions Not available 01/20/2025 12:10:44 To promote good health please follow these recommendations: Diet, Physical Activity and Healthy Weight: -Eat a diet low in trans and saturated fats and high in fiber, fruits and vegetables -Take 6697-7088 mg of calcium through diet and supplements -Engage in regular physical activity and weight bearing exercise -Aim to achieve and maintain ideal body mass index Tobacco and Alcohol Use: -Don't smoke or use other tobacco products -Avoid excessive alcohol intake Medications: -If you use any medications (prescriptions, plvv-her-vcyvhod, supplements, herbal), always do so as directed [...] recommendations outlined in your personal wellness plan. [email or web address] Not available 01/20/2025 11:04:01 Reason for Referral Resource Paraprofessional Referral for At rial fibrillation New onset Afib, request evaluation and management Referring Physician: Garcia Wright, Internal Medicine, Encounter Date: 01/20/2025 Results Created Date Observation Date Name Description Value Unit Range Abnormal Flag Note LastModifiedBy Organization Detail LastModifiedTime 01/25/2001/25/2025 CMP14 +EGFR glucose 101 mg/dL 70-99 above high normal Not Available [facility] ([facility]) [address] [place], [address], 01/25/2025 08:09:18 01/25/2001/25/2025 CMP14 +EGFR BUN 19 mg/dL 8-27 normal Not Available [facility] ([facility]) [address] [place], [address], 01/25/2025 08:09:18 01/25/20 25 01/25/2025 CMP14 +EGFR creatinine 1.18 mg/dL 0.76-1 .27 normal Not Available [facility] ([facility]) [address] [place], [address], 01/25/2025 08:09:18 01/25/20 25 01/25/2025 CMP14 +EGFR eGFR 67 mL/mi n/1.7 3 >59 normal Not Available [facility] ([facility]) [address] [facility], [place], [address], 01/25/2025 08:09:18 01/25/20 25 01/25/2025 CMP14 +EGFR BUN/creatini ne ratio 16 10-24 normal Not Available [facility] ([facility]) [address] [facility], [place], [address], 01/25/2025 08:09:18 01/25/20 25 01/25/2025 CMP14 +EGFR sodium 138 mmol/ L 134-14 4 normal Not Available [facility] ([facility]) [address] [place], [address], 01/25/2025 08:09:18 01/25/20 25 01/25/2025 CMP14 +EGFR potassium 5.0 mmol/ L 3.5-5. 2 normal Not Available [facility] ([facility]) [address] [facility], [place], [address], 01/25/2025 08:09:18 01/25/20 25 01/25/2025 CMP14 +EGFR chloride 100 mmol/ L 96-106 normal Not Available [facility] ([facility]) [address] [place], [address], 01/25/2025 08:09:18 01/25/20 25 01/25/2025 CMP14 +EGFR carbon dioxide, total 27 mmol/ L 20-29 normal Not Available [facility] ([facility]) [address] [place], [address], 01/25/2025 08:09:18 01/25/20 25 01/25/2025 CMP14 +EGFR calcium 10.0 mg/dL 8.6-10 .2 normal Not Available [facility] ([facility]) [address] [place], [address], 01/25/2025 08:09:18 01/25/20 25 01/25/2025 CMP14 +EGFR protein, total 7.2 g/dL 6.0-8. 5 normal Not Available [facility] ([facility]) [address] [place], [address], 01/25/2025 08:09:18 01/25/20 25 01/25/2025 CMP14 +EGFR albumin 4.6 g/dL 3.9-4. 9 normal Not Available [facility] ([facility]) [address] [facility] [place] [place], [address], 01/25/2025 08:09:18 01/25/20 25 01/25/2025 CMP14 +EGFR globulin, total 2.6 g/dL 1.5-4. 5 Not Available [facility] ([facility]) [address] [facility] [place], [address], 01/25/2025 08:09:18 01/25/20 25 01/25/2025 CMP14 +EGFR bilirubin, total 0.7 mg/dL 0.0-1. 2 normal Not Available [facility] ([facility]) [address] [facility] [place], [address], 01/25/2025 08:09:18 01/25/20 25 01/25/2025 CMP14 +EGFR alkaline phosphatase 57 IU/L 47-123 normal Not Available [facility] ([facility]) [address] [facility] [place], [address], 01/25/2025 08:09:18 01/25/20 25 01/25/2025 CMP14 +EGFR AST (SGOT) 27 IU/L 0-40 normal Not Available [facility] ([facility]) [address] [facility] [place], [address], 01/25/2025 08:09:18 01/25/20 25 01/25/2025 CMP14 +EGFR ALT (SGPT) 27 IU/L 0-44 normal Not Available [facility] ([facility]) [address] [facility], [place], [address], 01/25/2025 08:09:18 01/25/20 25 01/25/2025 CBC WITH DIFFE RENTI AL/PL ATELE T WBC 7.1 x10e3 /uL 3.4-10 .8 normal Not Available [facility] ([facility]) [address] [facility], [place], [address], 01/25/2025 08:09:19 01/25/2001/25/2025 CBC WITH DIFFE RENTI AL/PL ATELE T RBC 5.44 x10e6 /uL 4.14-5 .80 normal Not Available [facility] ([facility]) [address] [facility], [place], [address], 01/25/2025 08:09:19 01/25/20 25 01/25/2025 CBC WITH DIFFE RENTI AL/PL ATELE T hemoglobin 16.3 g/dL 13.0-1 7.7 normal Not Available [facility] ([facility]) [address] [facility], [place], [address], 01/25/2025 08:09:19 01/25/2001/25/2025 CBC WITH DIFFE RENTI AL/PL ATELE T hematocrit 48.7 % 37.5-5 1.0 normal Not Available [facility] ([facility]) [address] [facility], [place], [address], 01/25/2025 08:09:19 01/25/2001/25/2025 CBC WITH DIFFE RENTI AL/PL ATELE T MCV 90 fL 79-97 normal Not Available [facility] ([facility]) [address] [facility], [place], [address], 01/25/2025 08:09:19 01/25/20 25 01/25/2025 CBC WITH DIFFE RENTI AL/PL ATELE T MCH 30.0 pg 26.6-3 3.0 normal Not Available [facility] ([facility]) [address] [facility], [place], [address], 01/25/2025 08:09:19 01/25/20 25 01/25/2025 CBC WITH DIFFE RENTI AL/PL ATELE T MCHC 33.5 g/dL 31.5-3 5.7 normal Not Available [facility] ([facility]) [address] [facility], [place], [address], 01/25/2025 08:09:19 01/25/2001/25/2025 CBC WITH DIFFE RENTI AL/PL ATELE T RDW 14.3 % 11.6-1 5.4 Not Available [facility] ([facility]) [address] [facility], [place], [address], 01/25/2025 08:09:19 01/25/20 25 01/25/2025 CBC WITH DIFFE RENTI AL/PL ATELE T platelets 254 x10e3 /uL 150-45 0 normal Not Available [facility] ([facility]) [address] [facility], [place], [address], 01/25/2025 08:09:19 01/25/20 25 01/25/2025 CBC WITH DIFFE RENTI AL/PL ATELE T neutrophils 57 % not estab. normal Not Available [facility] ([facility]) [address] [facility], [place], [address], 01/25/2025 08:09:19 01/25/20 25 01/25/2025 CBC WITH DIFFE RENTI AL/PL ATELE T lymphs 30 % not estab. normal Not Available [facility] ([facility]) [address] [facility], [place], [address], 01/25/2025 08:09:19 01/25/20 25 01/25/2025 CBC WITH DIFFE RENTI AL/PL ATELE T monocytes 9 % not estab. normal Not Available [facility] ([facility]) [address] [place], [address], 01/25/2025 08:09:19 01/25/20 25 01/25/2025 CBC WITH DIFFE RENTI AL/PL ATELE T eos 3 % not estab. normal Not Available [facility] ([facility]) [address] [facility], [place], [address], 01/25/2025 08:09:19 01/25/20 25 01/25/2025 CBC WITH DIFFE RENTI AL/PL ATELE T basos 1 % not estab. 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 0 normal Not Available [facility] ([facility]) [address] [place], [address], 01/25/2025 08:09:19 01/25/20 25 01/25/2025 CBC WITH DIFFE RENTI AL/PL ATELE T lymphs (absolute) 2.1 x10e3 /uL 0.7-3. 1 normal Not Available [facility] ([facility]) [address] [place], [address], 01/25/2025 08:09:19 01/25/20 25 01/25/2025 CBC WITH DIFFE RENTI AL/PL ATELE T monocytes(ab solute) 0.6 x10e3 /uL 0.1-0. 9 normal Not Available [facility] ([facility]) [address] [facility], [place], [address], 01/25/2025 08:09:19 01/25/20 25 01/25/2025 CBC WITH DIFFE RENTI AL/PL ATELE T eos (absolute) 0.2 x10e3 /uL 0.0-0. 4 normal Not Available [facility] ([facility]) [address] [facility], [place], [address], 01/25/2025 08:09:19 01/25/2001/25/2025 CBC WITH DIFFE RENTI AL/PL ATELE T baso (absolute) 0.1 x10e3 /uL 0.0-0. 2 normal Not Available [facility] ([facility]) [address] [facility], [place], [address], 01/25/2025 08:09:19 01/25/20 25 01/25/2025 CBC WITH DIFFE RENTI AL/PL ATELE T immature granulocytes 0 % not estab. Not Available [facility] ([facility]) [address] [facility], [place], [address], 01/25/2025 08:09:19 01/25/20 25 01/25/2025 CBC WITH DIFFE RENTI AL/PL ATELE T immature grans (abs) 0.0 x10e3 /uL 0.0-0. 1 Not Available [facility] ([facility]) [address] [place], [address], 01/25/2025 08:09:19 01/25/2001/25/2025 CBC WITH DIFFE RENTI AL/PL ATELE T NRBC PAGE [employer]UP SYSTEM OPERATOR Not Available [facility] ([facility]) [address] [facility], [place], [address], 01/25/2025 08:09:19 01/25/20 25 01/25/2025 CBC WITH DIFFE RENTI AL/PL ATELE T hematology comments: PAGE MAKEUP SYSTEM OPERATOR Not Available [facility] ([facility]) [address] [facility], [place], [address], 01/25/2025 08:09:19 01/25/20 25 01/25/2025 LIPID PANEL cholesterol, total 197 mg/dL 100-19 9 normal Not Available [facility] ([facility]) [address] [place], [address], 01/25/2025 08:09:19 01/25/20 25 01/25/2025 LIPID PANEL triglyceride s 82 mg/dL 0-149 normal Not Available [facility] ([facility]) [address] [place], [address], 01/25/2025 08:09:19 01/25/20 25 01/25/2025 LIPID PANEL HDL cholesterol 48 mg/dL >39 normal Not Available [facility] ([facility]) [address] [place], [address], 01/25/2025 08:09:19 01/25/20 25 01/25/2025 LIPID PANEL VLDL cholesterol lexa 15 mg/dL 5-40 Not Available [facility] ([facility]) [address] [place], [address], 01/25/2025 08:09:19 01/25/20 25 01/25/2025 LIPID PANEL LDL chol calc ([facility]) 134 mg/dL 0-99 above high normal Not Available [facility] ([facility]) [address] [place], [address], 01/25/2025 08:09:19 01/25/20 25 01/25/2025 LIPID PANEL LDL calc comment: PAGE 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 Not Available [facility] ([facility]) [address] [facility], [place], [address], 01/25/2025 08:09:20 01/25/20 25 01/25/2025 PSA TOTAL [...] t be inter prete d as absol [place] evide nce of the prese nce or absen ce of mario leal se. Not Available [facility] ([facility]) [address] [facility], [place], [address], 01/25/2025 08:09:20 01/25/2001/25/2025 TSH TSH 3.460 uIU/m L 0.450- 4.500 normal Not Available [facility] ([facility]) [address] [facility], [place], [address], 01/25/2025 08:09:20 01/21/20 elect laci boland am No observ ation record ed. GENE [email or web address] [address] [place], [address], 01/20/2025 12:19:09 01/24/2001/20/2025 elect laci boland am No observ ation record ed. GENE [email or web address] 6 [address] [place], [address], 01/26/2025 15:12:07 Result Notes None recorded. 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 29672011981 07 Active 2022 Vasculoge yamilet erectile dysfuncti on Not Available [facility] 12:02:51 Hyperchol esterolem ia 00221322 Active 2022 Hyperchol esterolem ia Not Available [facility] 12:02:52 Insomnia 194086269 Active 2022 Garcia Wright MD [address] [place] [address], [address] [place] [address] , [facility] 14:58:49 Seasonal allergic rhinitis 712414663 Active 2024 Garcia Wright MD [address] [place] [address], [address] [place] [address] , [facility] 11:23:10 Atrial fibrillat ion 09661302 Active 2024 Garcia Wright MD [address] [place] [address], [address] [place] [address] , [facility] 12:04:32 Essential hypertens ion 68113520 Active 2024 Garcia Wright MD [address] [place] [address], [address] [place] [address] , [facility] 12:28:05 Problem Notes None recorded. Procedures Surgical History Date Name Laterality Status Provider Name and Address Organization Details Recorded Time 01/21/20 AWV - male prevention plan completed Garcia Wright MD [address] [place] [address], [address] [place] [address], [facility] 01/20/2025 12:18:30 01/21/20 25 AWV - safety evaluation completed Monique Wesley [facility] - [facility] 01/20/2025 11:04:01 01/18/20 24 AWV - male prevention plan completed Garcia Wright MD [address] [place] [address], [address] Floor, [place], [address], CT - [facility] 01/18/2024 14:46:49 01/18/20 24 Advance Care Planning Consultation completed Garcia Wright MD [address] [place] [address], [address] Floor, [place], [address], [place] - [facility] 01/18/2024 14:47:05 01/18/20 24 AWV - safety evaluation completed Danielle Gabriel CT - [facility] 01/18/2024 13:39:04 12/30/19 23 Advance Care Planning Consultation completed Kyara Aviles CT - [facility] 12/29/2022 13:29:59 12/30/19 23 AWV - safety evaluation completed Kyara Aviles CT - [facility] 12/29/2022 13:29:59 12/30/19 23 AWV - male prevention plan completed Garcia Wright MD [address] [place] [address], [address] [place] [address], [place], [address], CT - [facility] 12/29/2022 14:23:09 03/04/19 23 colonoscopy completed Garcia Wright MD [address] [place] [address], [address] [place] [address], [place], [address], CT - [facility] 12/29/2022 14:00:29 Imaging Results None recorded. [...] Updated DateTime 5 182.88 cm 30 kg/m2 165322. 91 g 63 /min 96 % 158/82 mm[Hg] Monique Olson CT - [facility] 11:08:25 Social History Question Answer Notes LastModified by Organizat ion Details LastModified Time Tobacco Smoking Status Never Smoker Not Available [facility] 09/19/2022 06:13:04 Do You Have An Advance [...] not available 01/18/2024 Where Do You Live? [facility] Information not available 01/18/2024 How Often During [...] Do You Have A Medical Power Of Manager Freelance? No Information not available 12/29/2022 What Was [...] Date Was Tobacco Cessation Counseling Provided? 01/20/2025 [email or web address] Information not available 01/20/2025 Do You Have [...] Status Question Answer Note LastModified by Organizat Desk Details LastModified Time Do you feel stressed (tense, restless, nervous, or anxious, or unable to sleep at night)? [id number] Information not available 12/29/2022 Do you have [...] N Pacemaker N Hyperthyroidism (over active) N Allergies (environmental/food) Y Reflux/GERD (heartburn) N Anesthesia Complications N Anxiety Disorder N Chronic Obstructive Pulmonary Disease (C OPD) N Genetic / Hereditary Disorder N Arthritis Y Seizures / Epilepsy N Cancer N Cerebrovascular Accident (Stroke) N Hepatic / Liver Disease N Headaches / Migraines N Anemia N Hypercholesterolemia (high cholesterol) N Diabetes Mellitus N Autism Spectrum Disorder N Heart Murmur N Hypertension (high blood pressure) N Hypothyroidism (under active) N Congestive Heart Failure (CHF) N Asthma N Sleep Apnea N Colon Polyp Y Myocardial Infarction (heart attack) N Immunizations Vaccine Type Date Status Note Provider Nam e and Address Organization Details Recorded Time Influenza, adjuvanted, quadrivalent, PF 3 completed Crystal Harvey null, [place] - [facility] 12/29/2022 16:22:36 zoster live 6 completed Not Available [facility] 09/17/2022 22:06:09 DT (pediatric) 0 completed Not Available [facility] 09/17/2022 22:06:09 Td(adult) unspecified formulation 3 completed Not Available [facility] 09/17/2022 22:06:10 COVID-19, mRNA, LNP-S, PF, 30 mcg/0.3 mL dose 1 completed Not Available [facility] 09/17/2022 22:06:10 zoster live 7 completed Not Available [facility] 09/17/2022 22:06:10 Tdap 2 completed Not Available [facility] 09/17/2022 22:06:10 pneumococcal polysaccharide PPV23 3 completed Garcia Wright MD [address] [place] [address], [address] Floor, [place], [address], [place] - [facility] 12/29/2022 13:58:54 Past Encounters Encounter ID Performer Location Encounter Start Date Encounter Closed Date Diagnosis/Indication Diagnosis SNOMED-CT Code Diagnosis ICD10 Code Diagnosis IMO Codes Diagnosis Note [id number] Garcia Wright MD CT_CTCMA_ IM_16 [place] [address] [place] [address] 01/20/2025 10:50:25 01/20/2025 12:18:01 Adult health examination 067277946 Z00.00 [id number] Wilberto has been doing well and we encourage him to restart his regular exercises to maintain his weight. He is up-to-date with Tdap, Pneumovax and Shingrix. We will recheck a CBC CMP and cholestero l check as well as PSA as discussed above. He is up-to-date with his colonoscop y. Hypercholesterolemia 136 91107 E78.00 10-year CV risk is at 20% and he agreed to have a coronary calcium CT but after he sees the cardiologi st, which we will schedule due to his new onset A-fib. Atrial fibrillation 4943 6004 I48.91 [id number] EKG done today shows atrial fibrillati on of unknown age. EKG last year was normal. Will start patient on baby aspirin a day and scheduled for cardiology consult. CHADS2 score today due to high blood pressure is 1. Patient declined beta-block ers today. Essential hypertension 99453653 I10 57974 Patient declined any blood pressure medication today [...] by Organization Details LastModified Time None Recorded Payers Encounter Date Sequence Insurance Name Policy Number Policy Parsons Covered Member ID Parsons Member ID Guarantor Name 01/20/2025 1 [place]UE (MEDICARE REPLACEMENT PPO) [id number] Raad Pierre [id number] Raad Pierre Notes Date Note Type Note Provider Name and Address Organization Details Recorded Time 5 text/html Medicare Annual Wellness Visit Health [...] no shortness of breath. Garcia Wright MD [address] [place] [address], [address] Floor, [place], [address], [place] - [facility] 01/20/2025 12:29:17
--- OUTSIDE RECORDS SUMMARY | 2025-02-14 18:10 | XMS_ITS | Clinical Summary ---
Author Organization [facility] Address [address] [place] [address] Phone Care Team Providers Care Straw Baler Name Role Phone Hero Gates MD Primary Care Provider [phone] Encounters Date Type Department Care Team Description 01/31/2025 Telephone [facility] [id number] [facility] [address] [place] [address] Hero Gates MD 01/23/[address] [place] [address] Hero Gates MD from Last 3 Months Social History Tobacco Use Types Packs/Day Years Used Date Smoking Tobacco: Never Smokeless Tobacco: Never Alcohol Use Standard Drinks/Week Comments Not Currently 2 (1 standard drink = 0.6 oz pur e alcohol) Sex and Gender Information Value Date Recorded Sex Assigned at Not on file Legal Sex Male 12:37 AM EST Gender Identity Not on file Sexual Orientation Not on file Last Filed Vital Signs Vital Sign Reading Time Taken Comments Blood Pressure 124/79 05/29/2022 9:01 AM EDT Sitting Left arm Pulse 86 05/29/2022 9:01 AM EDT Temperature - - Respiratory Rate - - Oxygen Saturation - - Inhaled Oxygen Concentration - - Weight 98.2 kg (216 lb 9.6 oz) 05/29/2022 9:01 AM EDT Height 182.9 cm (6') 05/29/2022 9:01 AM EDT Body Mass Index 29.38 05/29/2022 9:01 AM EDT Plan of Treatment Health Maintenance Due Date Last Done Comments Colorectal Cancer Screening: Colonoscopy 1955 Zoster Vaccines (2 of 3) 09/17/2016 017, 07/09/2015 Abdominal Aortic Aneurysm (AAA) Screen 01/25/2022 Cholesterol Screening (Lipid Panel) 01/25/2022 Falls Risk Assessment 01/25/2022 Hepatitis C Screening 01/25/2022 Medicare Annual Wellness Visit 01/25/2022 Social Influencers of Health Screening 01/25/2022 Pneumococcal Vaccine: 50+ Years (2 of 2 - PCV) 10/30/2023 10/29/2022 Depression Screening 02/17/2024 COVID-19 Vaccine (4 - 2024-2 6 season) 2024 12/09/2020, 05/24/2020, 05/03/2020 Influenza Vaccine (#1) 2024 12/29/2022 RSV Immunization Adult Patients (1 - 1-dose 75+ series) 06/18/2030 DTaP,Tdap,and Td Vaccines (4 - Td or Tdap) 03/12/2031 03/12/2021, 06/22/2012, 09/03/1999 HIB Vaccines Aged Out No longer eligi ble based on patient's age to complete this topic HPV Vaccines Aged Out No longer eligi ble based on patient's age to complete this topic Hepatitis A Vaccines Aged Out No long er eligible based on patient's age to complete this topic Hepatitis B Vaccines Aged Out No long er eligible based on patient's age to complete this topic IPV Vaccines Aged Out No longer eligi ble based on patient's age to complete this topic MMR Vaccines Aged Out No longer eligi ble based on patient's age to complete this topic Meningococcal ACWY Vaccine Aged Out N o longer eligible based on patient's age to complete this topic Meningococcal B Vaccine Aged Out No l onger eligible based on patient's age to complete this topic RSV Immunization Patients Under 20 months Aged Out No longer eligible b ased on patient's age to complete this topic Varicella Vaccines Aged Out No longer eligible based on patient's age to complete this topic Insurance BLUE CROSS - [place] MEDICARE ADVANTAGE Care Teams Straw Baler Relationship Specialty Start Date End Date Hero Gates MD PCP - General 01/07/21
--- OUTSIDE RECORDS SUMMARY | 2025-02-14 18:10 | XMS_ITS | Clinical Summary ---
Author Organization [facility] Prior to 07/16/[address] [place] [id number] Care Team Providers Care Chemical Equipment Controller Name Role Phone Hero Gates MD Primary Care Provider [phone] Allergies No known active allergies Medications Medication Sig Dispensed Refills Start Date End Date Status albuterol 108 (90 Base) MCG/ACT inhaler INHALE 2 PUFFS BY MOUTH EVERY 6 HOURS FOR 10 DAYS NEEDED FOR SHORTNESS OF BREATH OR WHEEZING 0 05/20/2022 Active doxycycline (VIBRA-TABS) 100 MG tablet TAKE 1 TABLET BY MOUTH TWICE DAILY FOR 7 DAYS 0 05/27/2022 Active fluticasone (FLONASE) 50 MCG/ACT nasal spray SHAKE LIQUID AND USE 2 SPRAYS IN EACH NOSTRIL DAILY FOR 10 DAYS 0 05/27/2022 Active Active Problems Problem Noted Date Diagnosed Date Hypercholesterolemia 05/29/2022 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 Immunizations Name Administration Dates Next Due Covid-19 (Pfizer) Dilution Required 12/09/2020 DT 09/03/1999 Td (Adult), Unspecified formulation 06/22/2012 Tdap 03/12/2021 Zostavax (Zoster Live) 07/23/2016,07/09/2015 Social History Tobacco Use Types Packs/Day Years Used Date Smoking Tobacco: Never Passive Smoke Exposure: Never Smokeless Tobacco: Never Alcohol Use Standard Drinks/Week Comments Not Currently 2 (1 standard drink = 0.6 oz pur e alcohol) Sex and Gender Information Value Date Recorded Sex Assigned at Not on file Gender Identity Not on file Sexual Orientation Not on file Job Start Date Occupation Industry Not on file Not on file Not on file Last Filed Vital Signs Vital Sign Reading Time Taken Comments Blood Pressure 124/79 05/29/2022 9:01 AM EDT Pulse 86 05/29/2022 9:01 AM EDT Temperature 37 C (98.6 F) 05/29/2022 9:01 AM EDT Respiratory Rate - - Oxygen Saturation 95% 05/29/2022 9:01 AM EDT Inhaled Oxygen Concentration - - Weight 98.2 kg (216 lb 9.6 oz) 05/29/2022 9:01 A M EDT Height 182.9 cm (6') 05/29/2022 9:01 AM EDT Body Mass Index 29.38 05/29/2022 9:01 AM EDT Plan of Treatment Health Maintenance Due Date Last Done Comments Hepatitis C Screening 1955 Preventative Health Evaluation 06/18/1973 Colon Cancer Screening (Colonoscopy) 06/18/2000 Shingrix-Zoster Vaccine (1 of 2) 09/17/2016 Pneumococcal Vaccine (1 of 1 - PCV) 06/18/2020 Depression Screening 05/30/2023 05/29/2022 Fall Risk Assessment 05/30/2023 05/29/2022 COVID-19 Vaccine (4 - 2024- season) 2024 12/09/2020, 05/24/2020, 05/03/2020 RSV Adult > 60+ Yrs or (1 - 1-dose 75+ series) 06/18/2030 DTap / Tdap / Td (4 - Td or Tdap) 03/12/2031 03/12/2021, 06/22/2012, 09/03/1999 Hepatitis B Vaccines Aged Out No long er eligible based on patient's age to complete this topic Influenza Vaccine Discontinued RSV Ped < 20 months Aged Out No longe r eligible based on patient's age to complete this topic Care Teams Chemical Equipment Controller Relationship Specialty Start Date End Date Hero Gates MD PCP - General Internal Medicine 01/07/21
--- OUTSIDE RECORDS SUMMARY | 2025-02-14 18:10 | XMS_ITS ---
Author Name [facility] Organization Unknown History of Medication Use Medication Directions Dispensed Refills Start Date End Date Stat tadalafil 5 mg tablet Take 1 tablet every day by oral route as needed. 01/18/2024 active levofloxacin 750 mg tablet TAKE 1 TABLET BY MOUTH DAILY FOR 7 DAYS 05/20/2022 05/29/2022 completed benzonatate 200 mg capsule TAKE 1 CAPSULE BY MOUTH 2 TO 3 TIMES PER DAY FOR 4 DAYS NEEDED FOR COUGH 05/13/2022 05/29/2022 completed albuterol sulfate HFA 90 mcg/actuation aerosol inhaler INHALE 2 PUFFS BY MOUTH EVERY 6 HOURS FOR 10 DAYS NEEDED FOR SHORTNESS OF BREATH OR WHEEZING 12/29/2022 completed azithromycin 250 mg tablet TAKE 2 TABLETS BY MOUTH ON DAY 1 THEN TAKE 1 TABLET DAILY ON DAYS 2-5. 12/29/2022 completed doxycycline hyclate 100 mg tablet TAKE 1 TABLET BY MOUTH TWICE DAILY FOR 7 DAYS 12/29/2022 completed prednisone 20 mg tablet TAKE 2 TABLETS BY MOUTH DAILY FOR 5 DAYS 12/29/2022 completed tadalafil 5 mg tablet active amoxicillin 875 mg-potassium clavulanate 125 mg tablet TAKE 1 TABLET BY MOUTH TWICE DAILY FOR 10 DAYS active benzonatate 100 mg capsule TAKE 1 CAPSULE BY MOUTH THREE TIMES A DAY active fluticasone propionate 50 mcg/actuation nasal spray,suspension SHAKE LIQUID AND USE 2 SPRAYS IN EACH NOSTRIL DAILY FOR 10 DAYS active sildenafil 50 mg tablet TAKE 1 TABLET BY MOUTH NEEDED FOR ERECTILE DYSFUNCTION active Problems Problem Status Onset Date Problem Type Date of Resolution Source Seasonal allergic rhinitis active 2025-01-20 ProblemAct [facility] Hypercholesterolemia active 2022-05-29 ProblemAct [facility] Insomnia active 2022-10-10 ProblemAct [facility] A 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 active 2022-05-29 ProblemAct [facility]_ [facility] Atrial fibrillation active 2025-01-20 ProblemAct [facility] Essential hypertension active 2025-01-20 ProblemAct [facility] Immunizations Vaccine Date Source Lot Number Status Fluad Quad [id number](65yr up )(PF) 60 mcg (15 mcg x 4)/0.5mL IM syringe 12/29/2022 NEISHA [id number] co mpleted pneumococcal polysaccharide vaccine, 23 valent 10/29/2022 [facility] completed tetanus toxoid, reduced diph theria toxoid, and acellular pertussis vaccine, adsorbed 03/12/2021 [facility] [id number] completed SARS-COV-2 (COVID-19) vaccin e, mRNA, spike protein, LNP, preservative free, 30 mcg/0.3mL dose 12/09/2020 [facility] completed zoster vaccine, live 07/23/2016 NEIS[facility] [id number] comp leted zoster vaccine, live 07/09/2015 [facility] UNK comp leted Td(adult) unspecified formulation 06/22/2012 NEIS[facility] [id number] completed diphtheria and tetanus toxoi ds, adsorbed for pediatric use 09/03/1999 NEISHA UNK completed Encounters Encounter Type Encounter Reason Primary Diagnosis Location Date Ambulatory [facility] 01/15/2024 Ambulatory [facility] 01/15/2024 Ambulatory [facility] 01/15/2024 Ambulatory [facility] 01/15/2024 Care Team Organization Name Specialty Phone Email Start Date End [facility] 02/01/2024 [facility] FANI PEGUERO Primary Care 12/24/2021 10/05/2023
== END 2025-02-14 15:28 | disposition home or self-care (01) ==
LOC: HO.HCS 14:31
PROVIDERS: PCP Internal Medicine; Visit Provider Internal Medicine
DX: I48.91 Unspecified atrial fibrillation (principal)
CPT/HCPCS: 93010; 99204; G2211

== ENCOUNTER → 2025-02-14 14:30 | Outpatient (BNVA) | payer MEDICARE, SELFPAY | PROVIDERS: PCP Internal Medicine; Visit Provider Internal Medicine | DX: I48.91 Unspecified atrial fibrillation (principal); Z79.82 Long term (current) use of aspirin | CPT/HCPCS: 93005; 99202 ==